=== PATIENT | male | born 1990 | race Caucasian/White ===

== ENCOUNTER 2021-01-09 16:55 | Observation (INO) ==
[2021-01-09] MEDS ORDERED: Thiamine (B-1) 200 MG in 0.9 % Sodium Chloride 50 ML IVPB ONE (17:43)
[2021-01-09] MEDS ORDERED: Folic Acid 1 MG in 0.9 % Sodium Chloride 50 ML IVPB ONE (17:43)
[2021-01-09] MEDS ORDERED: 0.9 % Sodium Chloride 1,000 ML IVC ONE (17:43)
[2021-01-09] MEDS ORDERED: *HR* LORazepam 2 MG/ML VIAL IVP ONE (17:43)
[2021-01-09 19:32] LABS: Basophils # 0.1 K/mcL (0.0-0.2); Basophils % 0.9 %; Eosinophils # 0.3 K/mcL (0.0-0.6); Eosinophils % 4.4 %; Hematocrit 37.6 % (37.5-50.1); Hemoglobin 12.8 g/dL (12.9-16.9); Immature Granulocytes % 0.4 % (0-4); Lymphocytes # 2.2 K/mcL (0.6-4.6); Lymphocytes % 30.7 %; Mean Corpuscular Hemoglobin 32.7 pg (28.0-33.3); Mean Corpuscular Volume 96.2 fL (83.0-100.0); Mean Platelet Volume 12.7 fL (9.4-12.4); Monocytes # 0.8 K/mcL (0.0-1.3); Monocytes % 11.7 %; Platelet Count 115 K/mcL (140-400); Red Blood Count 3.91 M/mcL (4.19-5.50); Red Cell Distribution Width 13.5 % (11.5-14.5); Segmented Neutrophils % 51.9 %
[2021-01-09 19:35] LABS: Neutrophils # 3.6 K/mcL (1.6-8.9)
[2021-01-09 20:01] LABS: Platelet Estimate Decreased (Normal); Reactive Lymphocytes Present (Not Present)
[2021-01-09 20:17] LABS: BUN/Creatinine Ratio 15 (6-26); Blood Urea Nitrogen 8 mg/dL (6-20); Calcium 8.5 mg/dL (8.6-10.3); Carbon Dioxide 28 mEq/L (23-29); Chloride 99 mEq/L (98-107); Ethanol < 10 mg/dL (Less than 10); Glucose 124 mg/dL (70-105); Osmolality,Calculated 284 (280-300); Phosphorous 2.1 mg/dL (2.7-4.5); Potassium 2.6 mEq/L (3.5-5.1); Sodium 137 mEq/L (136-145); eGFR For African Americans > 60 (> 60); eGFR For Non-African Americans > 60 (> 60)
[2021-01-09] MEDS ORDERED: Potassium Chloride 40 MEQ, Lidocaine 1% 2 ML in 0.9 % Sodium Chloride 500 ML IVPB ONE (22:01)
[2021-01-09] MEDS ORDERED: Melatonin 3 MG TABLET PO PRN (22:04)
[2021-01-09] MEDS ORDERED: Ondansetron 4 MG/2 ML VIAL IVP PRN (22:04)
[2021-01-09] MEDS ORDERED: Naloxone 0.4 MG/ML INJ IVP PRN (22:04)
[2021-01-09] MEDS ORDERED: *HR* LORazepam 2 MG/ML VIAL IVP PRN ×3 (22:05)
[2021-01-10 07:07] LABS: Hematocrit 44.6 % (37.5-50.1); Hemoglobin 14.7 g/dL (12.9-16.9); Mean Corpuscular Hemoglobin 32.3 pg (28.0-33.3); Mean Platelet Volume 12.3 fL (9.4-12.4); Platelet Count 129 K/mcL (140-400); Red Blood Count 4.55 M/mcL (4.19-5.50); Red Cell Distribution Width 13.9 % (11.5-14.5)
[2021-01-10 07:30] LABS: Alanine Aminotransferase 161 Units/L (7-52); Albumin/Globulin Ratio 1.6 (1.1-2.2); Alkaline Phosphatase 82 Units/L (34-104); Aspartate Amino Transferase 179 Units/L (13-39); BUN/Creatinine Ratio 11 (6-26); Bilirubin,Direct 0.3 mg/dL (0.0-0.2); Bilirubin,Total 1.3 mg/dL (0.3-1.0); Blood Urea Nitrogen 6 mg/dL (6-20); Calcium 9.6 mg/dL (8.6-10.3); Carbon Dioxide 28 mEq/L (23-29); Chloride 100 mEq/L (98-107); Globulin 3.2 g/dL (2.4-3.5); Glucose 99 mg/dL (70-105); Osmolality,Calculated 282 (280-300); Potassium 3.4 mEq/L (3.5-5.1); Sodium 137 mEq/L (136-145); Total Protein 8.2 g/dL (6.4-8.9); eGFR For African Americans > 60 (> 60); eGFR For Non-African Americans > 60 (> 60)
[2021-01-10] MEDS: 0.9 % Sodium Chloride 1,000 ML IVC SCH ×2 (10:25→19:47)
[2021-01-10] MEDS: Nicotine 21 MG PATCH.TD24 TD SCH (10:52)
[2021-01-10] MEDS: Folic Acid 1 MG TABLET PO SCH (14:12)
[2021-01-10] MEDS: Thiamine (B-1) 100 MG TABLET PO SCH (14:12)
[2021-01-11 03:07] LABS: Hematocrit 39.9 % (37.5-50.1); Hemoglobin 13.6 g/dL (12.9-16.9); Mean Corpuscular HGB Conc 34.1 g/dL (31.6-35.5); Mean Corpuscular Hemoglobin 33.6 pg (28.0-33.3); Mean Corpuscular Volume 98.5 fL (83.0-100.0); Mean Platelet Volume 12.5 fL (9.4-12.4); Platelet Count 152 K/mcL (140-400); Red Blood Count 4.05 M/mcL (4.19-5.50); White Blood Count 7.1 K/mcL (4.3-11.1)
[2021-01-11 03:27] LABS: BUN/Creatinine Ratio 9 (6-26); Blood Urea Nitrogen 4 mg/dL (6-20); Calcium 9.3 mg/dL (8.6-10.3); Carbon Dioxide 25 mEq/L (23-29); Chloride 105 mEq/L (98-107); Glucose 107 mg/dL (70-105); Magnesium 1.8 mg/dL (1.6-2.6); Osmolality,Calculated 285 (280-300); Potassium 3.7 mEq/L (3.5-5.1); Sodium 139 mEq/L (136-145); eGFR For African Americans > 60 (> 60); eGFR For Non-African Americans > 60 (> 60)
[2021-01-11] MEDS: 0.9 % Sodium Chloride 1,000 ML IVC SCH ×2 (05:40→15:34)
[2021-01-11] MEDS: Thiamine (B-1) 100 MG TABLET PO SCH (10:10)
[2021-01-11] MEDS: Nicotine 21 MG PATCH.TD24 TD SCH (10:10)
[2021-01-11] MEDS: Folic Acid 1 MG TABLET PO SCH (10:10)
[2021-01-12] MEDS: 0.9 % Sodium Chloride 1,000 ML IVC SCH (00:52)
[2021-01-12 07:08] VITALS: BP 147/98; PULSE 91; TEMP 98.6; O2SAT 98
[2021-01-12] MEDS: Nicotine 21 MG PATCH.TD24 TD SCH (07:28)
[2021-01-12] MEDS: Folic Acid 1 MG TABLET PO SCH (07:28)
[2021-01-12] MEDS: Thiamine (B-1) 100 MG TABLET PO SCH (07:28)
== END 2021-01-12 11:13 | disposition home or self-care (01) ==
LOC: EMEROOARM 16:55 → 2ANU 16:55
PROVIDERS: ADMIT Internal Medicine; ATTEND Internal Medicine